=== PATIENT | male | born 1975 | race Caucasian/White ===

== ENCOUNTER 2016-08-19 21:09 | Emergency (ER) | payer SELFPAY ==
[~2016-08-19] VITALS: Ht 172.7 cm; Wt 60.9 kg
--- NOTE | 2016-08-19 21:13 | NUR ---
[facility] PT TOLD REGISTRATION HE WAS GOING OUT TO CAR TO GET CELL PHONE.
[2016-08-19 21:20] VITALS: Ht 172.7 cm; Wt 60.9 kg
--- NOTE | 2016-08-19 21:30 | ERPDOC ---
Departure Disposition Decision Date: Aug 19, 2016 Disposition Decision Time: 22:08 Disposition: 01 DISCHARGED HOME, SELF-CARE Impression Impression Impression: Primary Impression: Fasting hypoglycemia Severity: Mild Condition: Improved Seen By: Physician only Patient Instructions: Non-diabetic Hypoglycemia (ED) Problems/Meds/Labs Reviewed?: Yes Medications reviewed and manag: Yes Follow up care ordered?: Yes Mental Status: Alert, Oriented HPI - General Medical General Stated Complaint: DIZZINESS,TINGLING,VISION ISSUES Time Seen by Provider: 21:30 Source: patient Exam Limitations: no limitations HPI - General Medical Initial Comments Patient is a 41-year-old male presents emergency room for evaluation of dizziness tingling and tunnel vision. Patient states he gets he symptoms intermittently for several years whenever he does not eat. Patient states she has not eaten in the last 2 days. Patient also mentioned that mentions that he has a history of methamphetamine abuse and "fell off the wagon" days ago. Patient was driving up here from [place] to "visit somebody", began to have these symptoms he did stop at [employer] and they gave him some bread which is improved but not resolved his symptoms. Patient decided to come to the ER for us to tell him what is been going on for the last several years. Vital signs are within defined limits Allergies: Coded Allergies: No Known Allergies (Unverified , 08/19/16) Past History Past Medical History Pt denies signifigant PMH Psychological: drug abuse Surgical History Denies Surgeries Social History Smoking Status: Current every day smoker Substance Use Type: methamphetamine Substance last used: days (ago) (2) Alcohol Intake: none Review of Systems Constitutional Constitutional: dizziness, DENIES: appetite decrease, chills, fever, weakness Eyes Vision: blurring, DENIES: double vision, loss of visual rothman ENMT Sinuses: DENIES: congestion, rhinorrhea Mouth/Throat: DENIES: scratchy throat, sore throat Cardiovascular Cardiac: DENIES: chest pain Pulmonary Respiratory: DENIES: cough, sputum GI Upper Abdomen: DENIES: nausea, pain, vomiting Lower Abdomen: DENIES: constipation, diarrhea, pain General: DENIES: burning, frequency, pain, urgency Musculoskeletal General: DENIES: cramps, pain, weakness Integumentary Skin: DENIES: color change, itching, rash Endocrine Endocrine: DENIES: heat/cold intolerance Hematologic/Lymphatic Hematologic/Lymphatic: DENIES: anemia Physical Exam General General Nourishment: well nourished, well developed General Body Habitus: well groomed Vitals and Pain First Documented Vital Signs Date Time Temp Pulse Resp B/P Pulse Ox O2 Delivery O2 Flow Rate FiO2 08/19/16 21:20 98.2 97 16 126/69 100 Room Air Weight: Kilograms: Height (feet): Height (inches): Triage Pain Scale: RN VS reviewed by Provider: Yes Eyes (brief) Eyes Brief: found: EOMI ENMT (brief) ENMT Brief: FOUND: mucosa moist, normal dentition, NOT FOUND: nasal erythema, pharnyx erythema, tonsillar deviation Neck (brief) Neck: NOT FOUND: adenopathy, spasm, tenderness Respiratory (brief) Respiratory: FOUND: clear all rothman, equal bilaterally, NOT FOUND: rales, wheezes Cardiovascular (brief) Cardiac: FOUND: regular rate, regular rhythm Capillary Refill: <2 sec Abdomen (brief) Abdominal Brief: FOUND: bowel normo active x4, soft, NOT FOUND: distended, tender Lymphatic (brief) Lymphatic Brief: NOT FOUND: adenopathy Musculoskeletal (brief) Musculoskeletal Brief: NOT FOUND: spasm, tenderness Integumentary (brief) Integumentary Brief: FOUND: dry, pink, warm, NOT FOUND: rash Neurologic Mental Status: FOUND: alert, oriented GCS Adult : GCS Eye Opening: (4)Spontaneous GCS Verbal: (5)Oriented GCS Motor: (6)Obeys Commands GCS Total: 15 Cranial Nerves: FOUND: other (cranial nerves II through XII intact) Motor : Motor Side: bilateral Motor Location: biceps, triceps, wrist, finger extensors, finger flexors, quadriceps, hamstring, foot extension, foot flexion, eyelet cutter strength Motor Degree: 5 Sensation: FOUND: soft touch intact x4 ext DTR's : DTR Side: bilateral DTR Location: Biceps, Patellar DTR Grade: 2+ Psychiatric (brief) Psychiatric Brief: FOUND: alert, oriented Differential Diagnoses Considering: Hypo/Hyperglycemia, Hypo/Hyperkalemia, Hypo/Hypernatremia, Medication Effect, Poisoning/Accidental OD Progress Results/Orders Orders Procedure Category Date Status Time Bgm (Ed) EDM 08/19/16 Transmitted 21:29 Cbc W/Auto LAB 08/19/16 Complete Diff-Reflex Manual 21:44 Bmp - Basic Metabolic LAB 08/19/16 Complete Panel 21:44 Lab Results Laboratory Tests Test 08/19/16 21:33 08/19/16 21:51 Glucometer 125mg/dL White Blood Count 6.2T/MM3 Red Blood Count 5.06M/MM3 Hemoglobin 15.2GM/DL Hematocrit 43.1% Mean Corpuscular Volume 85.2UM3 Mean Corpuscular Hemoglobin 30.0UUG Mean Corpuscular Hemoglobin Concent 35.3GM/DL RDW Standard Deviation 39.6FL Platelet Count 423T/MM3 Mean Platelet Volume 8.4UM3 Immature Granulocyte % (Auto) 0.0% Neutrophils (%) (Auto) 43.3% Lymphocytes (%) (Auto) 44.5% Monocytes (%) (Auto) 9.3% Eosinophils (%) (Auto) 2.4% Basophils (%) (Auto) 0.5% Absolute Immature Granulocyte (auto 0.00T/MM3 Absolute Neutrophils (auto) 2.7T/MM3 Absolute Lymphocytes (auto) 2.8T/MM3 Absolute Monocytes (auto) 0.6T/MM3 Absolute Eosinophils (auto) 0.2T/MM3 Absolute Basophils (auto) 0.0T/MM3 Turbidity < 20 Sodium Level 143MEQ/L Potassium Level 3.3MEQ/L Chloride Level 103MEQ/L Carbon Dioxide Level 24MEQ/L Anion Gap 16MEQ/L Blood Urea Nitrogen 13.0MG/DL Creatinine 0.8MG/DL Glomerular Filtration Rate Calc 108 BUN/Creatinine Ratio 16RATIO Glucose Level 132MG/DL Calculated Osmolality 277MOSM/KG Calcium Level 10.1MG/DL Icterus Index < 2 Chemistry Specimen Hemolysis < 15 Progress Progress Patient continued improvement with alimentation, laboratories are noncontributory we'll discharge patient home, instructions for fasting hypoglycemia given. Patient is instructed to follow-up with primary medical physician, establishNIKITA SARABIA MD Aug 19, 2016 21:30
--- NOTE | 2016-08-19 21:31 | NUR ---
[facility] NOTE STAFF WAS LEAVING ROOM AFTER TRIAGE PT ASKED FOR SOME FOOD STATES HE JUST NEEDS A SNACK OR SOMEHING TO GET BY
--- NOTE | 2016-08-19 21:39 | NUR ---
PO INTAKE SANDWICH, JUICE, CHIPS AND PUDDING PROVIDED TO PT PER DR GUZMÁN
[2016-08-19] MEDS ORDERED: NO ROUTINE MEDS (21:41)
[2016-08-19 22:00] LABS: BASOPHILS % (AUTO) 0.5 % (0-2); EOSINOPHILS # (AUTO) 0.2 T/MM3 (0-0.5); EOSINOPHILS % (AUTO) 2.4 % (0-4); HCT - HEMATOCRIT 43.1 % (41-53); HGB - HEMOGLOBIN 15.2 GM/DL (13.5-17.5); LYMPHOCYTES # (AUTO) 2.8 T/MM3 (1-4.8); LYMPHOCYTES % (AUTO) 44.5 % (23-45); MEAN CORPUSCULAR HGB CONC(MCHC 35.3 GM/DL (31-37); MEAN CORPUSCULAR VOLUME 85.2 UM3 (80-100); MEAN PLATELET VOLUME 8.4 UM3 (9.4-12.4); MONOCYTES # (AUTO) 0.6 T/MM3 (0-0.8); MONOCYTES % (AUTO) 9.3 % (0-9.0); NEUTROPHILS #(AUTO)-ABSOLUTE 2.7 T/MM3 (1.8-7.7); NEUTROPHILS % (AUTO) 43.3 % (33-66); RED BLOOD COUNT 5.06 M/MM3 (4.50-5.90); WBC - WHITE BLOOD COUNT 6.2 T/MM3 (4.5-11.0)
[2016-08-19 22:06] LABS: ANION GAP 16 MEQ/L (5-15); BUN/CREATININE RATIO 16 RATIO (6-26); CALCIUM 10.1 MG/DL (8.4-10.2); CHLORIDE 103 MEQ/L (98-107); CO2 - CARBON DIOXIDE 24 MEQ/L (22-30); CREATININE 0.8 MG/DL (0.8-1.5); GLOMERULAR FILTRATION RATE 108; GLUCOSE 132 MG/DL (75-110); POTASSIUM 3.3 MEQ/L (3.6-5); SODIUM 143 MEQ/L (134-144)
[2016-08-19 22:12] VITALS: BP 126/69; PULSE 97; RESP 16; TEMP 98.2; O2SAT 100
== END 2016-08-19 22:12 | disposition home or self-care (01) ==
LOC: ED 21:09
DX: E16.1 Other hypoglycemia (principal)
CPT/HCPCS: 36415; 80048; 82948; 85025